=== PATIENT | female | born 1990 | race Caucasian/White ===

== ENCOUNTER 2016-12-01 22:06 | Inpatient (IN) | payer OTHER ==
[~2016-12-01] VITALS: Ht 162.6 cm; Wt 63.5 kg
[~2016-12-01 22:06] MED LIST: FLUOXETINE20 MG PO; TRAZODONE HCL50 MG PO
[2016-12-01 23:08] LABS: ABSOLUTE BASOPHIL COUNT 0.1 /CUMM (0.0-0.2); ABSOLUTE EOSINOPHIL COUNT 0.1 /CUMM (0.0-0.7); ABSOLUTE GRANULOCYTE CT 3.6 /CUMM (1.4-6.5); ABSOLUTE LYMPH COUNT 2.8 /CUMM (1.2-3.4); ABSOLUTE MONOCYTE COUNT 0.5 /CUMM (0.10-0.60); EOSINOPHIL % 1.3 % (0-5); GRANULOCYTE % 50.5 % (42.2-75.2); HEMATOCRIT 45.4 % (37-47); MEAN CORPUSCULAR HGB 30.7 PG (27.0-31.0); MEAN CORPUSCULAR HGB CONC 33.6 G/DL (33.0-37.0); MEAN CORPUSCULAR VOLUME 91.5 FL (81.0-99.0); MEAN PLATELET VOLUME 6.3 FL (7.4-10.4); PLATELET COUNT 310 /CUMM (130-400); RBC DISTRIBUTION WIDTH 15.2 % (11.5-14.5); RED BLOOD CELL CT 4.96 /CUMM (4.20-5.40)
--- NOTE | 2016-12-01 23:46 | ED GENERAL ADULT ---
History of Present Illness General Chief Complaint: Psychiatric Related Complaint Stated Complaint: DETOX FROM ETOH Source: patient, family Exam Limitations: no limitations Vital Signs & Intake/Output Vital Signs & Intake/Output Vital Signs Date Time Temp Pulse Resp B/P Pulse O2 O2 Flow FiO2 Ox Delivery Rate 12/03 0704 98.0 88 16 130/80 98 Room Air 12/03 0010 98.0 88 16 130/80 98 Room Air 12/02 2246 95.8 73 16 108/63 12/02 2246 95.8 73 16 108/63 98 Room Air 12/02 1948 96.5 91 16 135/86 12/02 1948 96.5 91 16 135/86 98 Room Air 12/02 1647 98.6 79 16 114/60 12/02 1647 98.6 79 16 114/60 99 Room Air 12/02 1407 96.8 90 18 132/65 /12 1356 96.8 90 18 132/65 98 Room Air ED Intake and Output 12/03 0000 12/02 1200 Intake Total 240 Output Total Balance 240 Intake, Oral 240 Patient 140 lb Weight Allergies Coded Allergies: NO KNOWN ALLERGIES (02/10/14) Triage Note: per pt need to detox from etoh, last drink couple hrs ago, drinking x 12 yrs. no recent drug use.. lips dry alert mentating well. admits to 1-2 pints daily Triage Nurses Notes Reviewed? yes : No Patient currently breastfeeds: No HPI: 26 yo F PMH EtOH abuse (c/b withdrawal syndromes, seizures) presenting with EtOH intoxication seeking detox. Patient has been drinking 2 pints of EtOH for the last year, recenlty moved back to [place] from [place], has been living with parents, emerita patient and parents "fed up" with EtOH abuse prompting presentation to ED for detox. Last drink 2 hrs ago. Mild anxiety and tremors. Interimttent nausea, vomiting, and epigasrtic abdominal pain, absent currently. Denies illicit drug use. PPH of anxiety, depression, denies SI, plan, intent, AH, VH. Denies falls, trauma, pain, fevers, chills, chest pain, SOB, focal neurologic Sx. (SHWETHA MAHONEY,DERRELL) Reconcile Medications No Known Home Medications (RASHID MAHONEY,MITESH Wick) Past History Travel History Traveled to [place] past 21 day No Medical History Any Pertinent Medical History? see below for history Neurological: NONE EENT: NONE Cardiovascular: NONE Respiratory: NONE Gastrointestinal: NONE Hepatic: NONE Renal: NONE Musculoskeletal: NONE Psychiatric: NONE Endocrine: NONE Surgical History Surgical History: none Psychosocial History Who do you live with Family What is your primary language [place] Tobacco Use: Current Daily Use Daily Tobacco Use Amount/Type: => 5 Cigarettes daily ETOH Use: alcoholic Illicit Drug Use: UTD Family History Hx Contributory? Yes (DERRELL TADEO MD) Review of Systems Review of Systems Constitutional: Reports: no symptoms. EENTM: Reports: no symptoms. Respiratory: Reports: no symptoms. Cardiovascular: Reports: no symptoms. GI: Reports: no symptoms, abdominal pain, nausea, vomiting. Genitourinary: Reports: no symptoms. Musculoskeletal: Reports: no symptoms. Skin: Reports: no symptoms. Neurological/Psychological: Reports: anxiety, tremors. Hematologic/Endocrine: Reports: no symptoms. Immunologic/Allergic: Reports: no symptoms. All Other Systems: Reviewed and Negative (DERRELL TADEO MD) Physical Exam Physical Exam General Appearance: well developed/nourished, no apparent distress, alert, awake , anxious Head: atraumatic, normal appearance Eyes: Bilateral: normal appearance. Ears, Nose, Throat: normal pharynx, normal ENT inspection Neck: normal inspection, supple, full range of motion Respiratory: normal breath sounds, no respiratory distress, lungs clear Cardiovascular: regular rate/rhythm, normal peripheral pulses Gastrointestinal: normal bowel sounds, soft, non-tender Extremities: normal inspection Neurologic/Psych: no motor/sensory deficits, awake, alert, oriented x 3 Comments: Abdomen: Soft and non-TTP throughout Neurologic: No tremors or tongue fasiculations Core Measures ACS in differential dx? No CVA/TIA Diagnosis: No Severe Sepsis Present: No Septic Shock Present: No (DERRELL TADEO MD) Progress Differential Diagnoses I considered the following diagnoses in my evaluation of the patient: [EtOH abuse, EtOH withdrawal] Plan of Care: Orders Procedure Date/time Status Regular Diet 12/03 B Active Change service to 12/03 0959 Active HEPT C ANTIBODY 12/03 0600 Complete CBC WITHOUT DIFFERENTIAL 12/03 0600 Complete BASIC ELECTROLYTES PLUS BUN&CR 12/03 0600 Complete Lab Add-on Test 12/03 UNK Active SOCIAL WORK CONSULT 12/03 UNK Active PSYCHIATRIC CONSULT 12/03 UNK Active Vital Signs 12/02 2346 Active Teach/Educate 12/02 2346 Active Pain Treatment and Response 12/02 234 Active Nutritional Intake, Monitor 12/02 234 Active Isolation 12/02 2346 Active Intake & Output 12/02 2346 Active Patient Care Conference 12/02 2346 Active Activity/Ambulation 12/02 2346 Active Pathway - chart 12/02 2206 Active Pathway - chart 12/02 214 Active House Staff 12/03 2139 Active Patient Data 12/03 2139 Active Lab Add-on Test 12/03 2139 Active BASIC ELECTROLYTES PLUS BUN&CR 12/03 2139 Complete Patient Data 12/02 205 Active Admit to inpatient 12/02 1831 Active Vital Signs 12/02 1831 Active Code Status 12/02 1831 Active Intake & Output 12/02 1207 Active VTE Mechanical Prophylaxis 12/02 UNK Active CIWA 12/02 UNK Complete SOCIAL WORK CONSULT 12/02 UNK Active PHOSPHORUS 12/01 2255 Complete MAGNESIUM 12/01 2255 Complete LIPASE 12/01 2255 Complete HEPT B SURFACE ANTIGEN 12/01 2255 Complete HEPT B SURFACE ANTIBODY 12/01 2255 Complete AMYLASE 12/01 2255 Complete Current Medications Sig/Jose Start time Last Medication Dose Stop Time Status Admin Omeprazole 20 MG DAILY AC 12/03 0700 CAN (Prilosec) Acetaminophen 650 MG Q6P PRN 12/02 2215 AC (Tylenol) Oxycodone HCl 5 MG Q6P PRN 12/02 2215 AC (Roxicodone) Lorazepam 1 MG Q1P PRN 12/02 2145 AC (Ativan) Sodium Chloride 1,000 ML BOLUS ONE 12/02 1245 CAN (Normal Saline 0.9%) 12/02 1344 Lorazepam 2 MG Q2P PRN 12/01 2315 AC (Ativan) Laboratory Tests 12/03/16 0645: Anion Gap 12, Estimated GFR > 60, BUN/Creatinine Ratio 18.3, CBC w Diff NO MAN DIFF REQ, RBC 4.59, MCV 92.0, MCH 30.9, RDW 14.6 H, MPV 6.9 L, Gran % 50.7, Lymphocytes % 33.5, Monocytes % 11.2 H, Eosinophils % 3.5, Basophils % 1.1, Absolute Granulocytes 2.3, Absolute Lymphocytes 1.5, Absolute Monocytes 0.5, Absolute Eosinophils 0.2, Absolute Basophils 0, PUBS MCHC 33.6, Hepatitis C Antibody NONREACTIVE 12/03/16 0030: Anion Gap 16, Estimated GFR > 60, BUN/Creatinine Ratio 20.0 Physician MDM: 26 yo F PMH extensive EtOH abuse with hx of complicated withdrawals presenting with EtOH abuse seeking detox. HR 100, SBP 130s, no tremors or tongue fasiculations on exam. Plan for labs, CIWA ativan based withdrawal scale, monitor overnight for admission vs. discharge. D/W Dr. Saleem. (SHWETHA MAHONEY,DERRELL) 5:15 PM STILL WAITING HUSKY APPROVAL. 7:20 AM Patient signed out to me by Dr. Saleem. Pending case management/crisis evaluation. 6:30 PM APPROVED FOR INPATIENT DETOX. D/W DR MONTOYA AND MOD. (NERIS MAHONEY,DAR) Initial ED EKG: none (SHWETHA MAHONEY,DERRELL) Hand-Off Endorsed To: DAR CORDON MD Endorsed Time: 0700 Pending: consult (case management/sobriety), other (sobriety) (RASHID MAHONEY,MITESH Wick) Differential Diagnoses I considered the following diagnoses in my evaluation of the patient: (DAR CORDON MD) Departure Departure Disposition: STILL A PATIENT Condition: Stable Clinical Impression Primary Impression: ETOH abuse Secondary Impressions: EtOH dependence Qualifiers: Substance use status: in withdrawal Complication of substance- induced condition: uncomplicated Qualified Code: F10.230 - Alcohol dependence with withdrawal, uncomplicated Referrals: PATIENT HAS NO PRIMARY CARE DR (PCP/Family) Departure Forms: Customer Survey General Discharge Information (DERRELL TADEO MD) Departure Prescriptions: Current Visit Scripts No Known Home Medications (RASHID MAHONEY,MITESH Wick) Departure Time of Disposition: 1831 Admission Note Spoke With: VIOLA MONTOYA MD Documentation of Exam: Documentation of any treatments & extenuating circumstances including Concerns Regarding Discharge (functional status, medication knowledge or non-compliance, living conditions, etc.) that warrant an admission rather than observation: [ ATIVAN TAPER, CIWA PROTOCOL, MONITOR I/O, CRISIS CONSULTATION, SEIZURE PRECAUTIONS] Resident Co-Sign Statement Statement: ED Attending supervision documentation- [X] I saw and evaluated the patient. I have also reviewed all the pertinent lab results and diagnostic results. I agree with the findings and the plan of care as documented in the Resident's documentation. [X] I have reviewed the ED Record and agree with the Resident's documentation. [] Additions or exceptions (if any) to the Resident's note and plan are summarized below: [] (NERIS MAHONEY,DAR) Critical Care Note Critical Care Note Critical Care Time: non-applicable (SHWETHA MAHONEY,DERRELL)
[2016-12-02 08:27] VITALS: BP 120/65
--- NOTE | 2016-12-02 09:24 | ED PSY CRISIS COLLATERAL NOTE ---
Collateral Note Collateral Note Family/Inform/Kym Contacts: telephone call with pt. father Darnell Morales. He stated that family will take "any advice the ED would give" as his daughter has had a significant drinking problem for "8-9 years". He reported that pt. had been in rehab in [place] for the last two years and that she was "kicked out of rehab for drinking". he reported she has "very sneaky behaviors" around drinking and has possibly tricked the parents and the rehab that she was sober when she was in fact not. As for psychiatric issues, father reported that pt. "seemed depressed" and showed this by having no energy/motivation and being emotional and crying easily. He stated that she has never attempted suicide. He reported that she can be combative when drinking.
[2016-12-02 12:15] VITALS: BP 137/67
[2016-12-02 14:07] VITALS: BP 132/65
[2016-12-02 16:47] VITALS: BP 114/60
[2016-12-02 19:48] VITALS: BP 135/86
--- NOTE | 2016-12-02 20:24 | History & Physical ---
FIDEL MAHONEY,BOBBY 12/02/162022: General Information and HPI Statement: I have seen and personally examined EFFIE LEONARD and documented this H&P. The patient is a 26 year old F who presented with a patient stated chief complaint of requesting Alcohol detox. Source of Information: patient, ED documents History of Present Illness: This is a 26-year-old lady with a questionable history of depression, an extensive social history of alcohol abuse since age of 10, including an episode of alcohol intoxication seizure, presents to [facility] ED for alcohol detox. Patient presented yesterday around 9 PM (12/01) with complaints of tremors, some slurred speech, confusion, nausea, and vomiting. She reports her last drink was about 2 hours prior to presentation. Patient endorses a daily consumption of 2 pints of vodka for about one year. When seen at the ED yesterday, patient was reported to be anxious and exhibited tremors. The ED records indicated that the main reason patient presented to [facility] ED was because of her parents were fed up, and were seeking help with detox. Patient reports that in 2013 she was admitted to a rehabilitation facility for detox in [place] and remained 9 months abstinent before relapsing. However, psych crisis documentation states that patient was noncompliant during rehabilitation and continued to drink. Patient denies any SI/HI, use of any other illicit drug, fever, chills, chest pain, palpitation, shortness of breath, focal neurological deficit, seizure-like activities, hallucination or nightmares. Allergies/Medications Allergies: Coded Allergies: NO KNOWN ALLERGIES (02/10/14) Home Med list No Known Home Medications Past History Travel History Traveled to [place] past 21 day No Medical History Neurological: NONE EENT: NONE Cardiovascular: NONE Respiratory: NONE Gastrointestinal: NONE Hepatic: NONE Renal: NONE Musculoskeletal: NONE Psychiatric: NONE Endocrine: NONE Surgical History Surgical History: none Past Family/Social History Psychosocial History ETOH Use: alcoholic Illicit Drug Use: UTD Review of Systems Review of Systems Constitutional: Reports: see HPI. Exam & Diagnostic Data Last 24 Hrs of Vital Signs/I&O Vital Signs Date Time Temp Pulse Resp B/P Pulse O2 O2 Flow FiO2 Ox Delivery Rate 12/026 95.8 73 16 108/63 12/02 2246 95.8 73 16 108/63 98 Room Air 12/03 1947 96.5 91 16 135/86 03/12 1948 96.5 91 16 135/86 98 Room Air 03/ 1647 98.6 79 16 114/60 03/12 1647 98.6 79 16 114/60 99 Room Air 12/02 1407 96.8 90 18 132/65 03/12 1356 96.8 90 18 132/65 98 Room Air 12/02 1215 96.6 92 16 137/67 /12 1214 96.6 92 16 137/67 98 Room Air 12/02 1047 98.1 92 20 124/70 97 Room Air 12/02 0827 98.0 96 18 120/65 /12 0804 98.0 96 18 120/65 96 Room Air 12/02 0642 98.2 93 18 121/62 97 Room Air 12/02 0432 96.1 93 18 123/63 97 Room Air Intake & Output 12/02 1600 12/02 0800 12/02 0000 Intake Total Output Total Balance Patient 65.771 kg Weight Physical Exam General Appearance Alert, Oriented X3, Cooperative Skin No Significant Lesion HEENT oral dry mucosa Neck Supple, No JVD, No thryomegaly, +2 Carotid Pulse wo Bruit Lymphatic Cervical nl Cardiovascular Regular Rate, Normal S1, Normal S2, No Murmurs, Gallops, Rubs Lungs Clear to Auscultation, Normal Air Movement Abdomen Normal Bowel Sounds, Soft, mild tenderness on left abdominal side. no guarding or rebound tenderness Neurological Normal Speech, Sensation Intact Extremities No Cyanosis, No Edema, Normal Pulses, No Tenderness/Swelling Vascular Normal Pulses, Pulses Symmetrical Assessment/Plan Assessment: This is a 26-year-old lady with a significant social history of alcohol abuse since 10 years, and I reported alcohol intoxication related seizure, presents to [facility] ED seeking alcohol detoxification. Patient was noted to be slightly tachycardic on presentation (HR 100).U tox was remarkable for alcohol level of 406.Patient's CIWA score has been ranging between 2-8 with tremors being prominent. Assessment and plan #Alcohol intoxication * Admit patient to general medicine * Lorazepam 2 mg every 6 hours * Lorazepam when necessary per CIWA protocol * Monitor for any withdrawal seizures * Zofran 4 mg every 4-6 hours for nausea and vomiting * Normal saline hydration 150 mL per hour * Banana bag * Will obtain psychosocial consult tomorrow morning #Tobacco abuse * Nicotine 14 mg done * Smoking cessation counseling done #History of depression Patient endorses depression with a possible remote diagnosis however no treatment. Will obtain psych consult for evaluation and management of depressed. As Ranked By This Provider Problem List: 1. Alcohol intoxication 2. EtOH dependence Qualifiers Substance use status: in withdrawal Complication of substance-induced condition : uncomplicated Qualified Code: F10.230 - Alcohol dependence with withdrawal, uncomplicated Core Measures/Miscellaneous Acute Coronary Syndrome ACS Diagnosis: No Cerebrovascular Accident CVA/TIA Diagnosis: No Congestive Heart Failure CHF Diagnosis: No Venous Thromboembolism VTE Risk Factors: Age > 40 [facility] d/t: No contraindications No VTE Pharm Prophylaxis d/t: No contraindications VTE Diagnosis: No VTE Type: NONE VTE Confirmed by (Test): NONE Severe Sepsis Severe Sepsis Present: No Septic Shock Septic Shock Present: No Miscellaneous Documentation Attending Case Discussed With: VIOLA MONTOYA MD Primary Care Physician: PATIENT HAS NO PRIMARY CARE DR Patient sees these Specialists none Level of Patient Care: General Medicine KOBY HELM 12/02/162: Resident Review Statement Resident Statement: examined this patient, discussed with multicultural internship, agreed with multicultural internship Other Findings: Patient is a 26-year-old woman with no significant past medical history except for for alcohol abuse with alcohol related withdrawal seizures, current every day smoker, history of depression and anxiety(never been treated for that) percent to the ED for evaluation of alcohol abuse in requesting detox. Patient has been drinking since the age of 10, drinks 2 pints of vodka on a daily basis. She was in the rehabilitation in [place] in 2013, but was discharged from the program as she started drinking again. She reported one episode of alcohol related seizure episode. Last drink was around 7 PM before coming to the hospital. In the ED patient was confused, had bilateral tremors remained nauseous and vomited couple of times. She was treated with IV Ativan and Zofran as needed for nausea in the ED. She was coarse in the last 24 hours 7, 6, 9, 11 mostly scored high on the tremors. Patient denied any shortness of breath, reported some intermittent chest discomfort without any palpitations. Still nauseous with some left upper quadrant discomfort night any diarrhea or constipation. Denied any recent infections. She continues to smoke and denies any illicit drug use. Vitals on admission temperature 98.8, pulse 100, respiratory rate 20, blood pressure 139/44 on room air On examination Appearance: Alert and oriented 3 ,not in acute distress Skin: Grossly normal. HEENT: PEERLA Neck: Supple, No JVD Cardiovascular: Regular Rate, Normal S1, Normal S2, No Murmurs Lungs: Lungs clear to auscultation bilaterally Abdomen: Slight tenderness in the left upper quadrant on exam without any guarding. Neurological: Neuro exam intact grossly Extremities: No Clubbing, No Cyanosis, No Edema. Bilateral hand tremors Vascular: Normal Pulses. Pertinent labs on admission normal WBC count H&H stable and normal platelet count, normal BEP, transaminitis: AST 164, ALT 137, with elevated anion gap 21 Pending lipase, Mg and phosphorous Urine toxicology positive for alcohol level around 406. Assessment and plan: 1. Alcohol intoxication/abuse with withdrawal, requesting detox: * We will admit the patient [facility] floor * Patient appearsdehydrated, we'll start the patient on normal saline at the rate of 150 mL per hour. * Continue with banana bag overnight start the patient on by mouth thiamine folate and multivitamins in the morning. * Start the patient on scheduled Ativan 2 mg every 6 hours * Continue Ativan as per [facility] protocol. * Zofran as needed for nausea. * Fall and seizure precautions * Social consult in the morning * Psych consult in the morning. * Watch for any withdrawal seizures. 2.Transaminitis:likely to alcohol abuse : * Repeat LFTs in am . 3. Intermitent heart burn (Alcohol related GERD /gasstritis : * Mg normal * Start PPI in am 4. History of questional depression: * Will obtain psych consult in the morning for further evaluation of anxiety depression. * Patient would benefit from treatment of depression. 5. Current every day smoker * Smoking cessation counseling done * We will start the patient on nicotine patches. Mild to moderate pain controlled with oxycodone and small dose of morphine. DVT prophylaxis with Lovenox Patient is full code VIOLA MONTOYA 12/03/16 0205: Attending MD Review Statement Attending Statement Attending MD Statement: examined this patient, discuss w/resident/PA/PRINTER ASSISTANT, agreed w/resident/PA/PRINTER ASSISTANT, reviewed EMR data (avail), reviewed images, amended to note Attending Assessment/Plan: CC: alcohol Detox PMHx: alcoholism, alcohol related Sz Patient came to ER for EtOH detox. She has been drinking 2 pints of alcohol for the last year, last drink was yesterday. She moved from [place] 2 months back and has been living with parents. Her parents suggested the detox and brought her to ER. In the past patient underwent 42 days of inpatient rehab and 9 month of outpatient rehab till Apr 2015, and relapsed again. She complains of intermittent nausea, vomiting, and epigasrtic abdominal pain, and chest pain, feeling better now. Denies illicit drug use. She denies SI or plan, homicidal ideation, visual or auditory hallucinations, LOC, falls, trauma, Sz, fevers, chills, SOB, or focal neurologic s/s Vitals: afebrile, Hr in 70s to 90s blood pressure in acceptable range. Saturating well on room air. On examination a O 3, no anxiety, no tremors, mucosa dry, neck supple, no lymphadenopathy, no JVD, skin rash on neck ( nonpruritic, absent on abdomen and back) CVS: S1-S2, RRR. RS: Clear to auscultate bilaterally. Abdomen: Soft, mild epigastric tenderness, no guarding or rigidity, ND, bowel sounds present. No focal neurological deficit. Labs: Done on 12/01/2016 shows anion gap of 21, bicarbonate 26, creatinine 0.6, BUN 10, AST 164, AST 137, total protein 8.5, beta-hCG negative, alcohol level 406, U tox negative A and P #1 alcohol withdrawal Heavy alcohol use since the age of 14, failed rehabilitation in the past, wants to go for inpatient rehabilitation again and request detox. CIWA score in ER was ranging from 11-6 - repeat CMP today, check magnesium, phosphorus, replace accordingly - Scheduled Ativan 2 mg by mouth every 6 hourly, taper from tomorrow, as needed IV Ativan according to CIWA score. - By mouth thiamine 100 mg daily, by mouth folic acid, Kylee 10 patch -Psychiatry consult #2 transaminitis: Secondary to alcoholism, repeated today and as required tomorrow, depending on today's labs. Patient has multiple tattoos done in different locations, check hepatitis B and C panel #3 epigastric pain: Probably secondary to alcohol related gastritis: Check lipase, PPI by mouth #4 encourage oral diet, IV hydration with NS and banana bag for her on an gap metabolic acidosis and metabolic alkalosis related to volume contraction, when necessary Zofran for nausea and vomiting
[2016-12-02 22:46] VITALS: BP 108/63
[2016-12-03 00:10] VITALS: BP 130/80
--- NOTE | 2016-12-03 00:49 | Admission Certification ---
Admission Certification Certification Statement - As attending physician, I certify that at the time of - admission, based on clinical presentation, severity of - symptoms, need for further diagnostic testing and - therapeutic interventions, and risk of adverse outcomes - without in-hospital treatment, in my clinical assessment, - this patient requires an acute hospital stay for a minimum - of two nights or longer. I have also considered psychsocial - factors such as support system, advanced age, financial - issues, cognitive issues, and failed out-patient treatments, - past re-admission history, safety of patient, and lack of - compliance as applicable. Specific rationale supporting this admission is: Alcohol detox and history of alcohol related seizures
[2016-12-03 07:04] VITALS: BP 130/80
--- NOTE | 2016-12-03 07:33 | PN- Housestaff ---
GEOFF MAHONEY,[facility] 12/03/16 0732: Subjective Follow-up For: Alcohol Detoxification Subjective: Miss Heard was seen and examined this morning. She is resting comfortably in bed. Patient states that she feels very tired. She states that she was unable to sleep till late last night. Patient denies any fever, chills, nausea, vomiting. She denies any auditory and/or visual hallucinations she denies any anxiety or tremors. She is tolerating a PO diet well. Review of Systems Constitutional: Reports: see HPI. Objective Last 24 Hrs of Vital Signs/I&O Vital Signs Date Time Temp Pulse Resp B/P Pulse O2 O2 Flow FiO2 Ox Delivery Rate 12/03 0704 98.0 88 16 130/80 98 Room Air 12/03 0010 98.0 88 16 130/80 98 Room Air 12/02 2246 95.8 73 16 108/63 12/02 2246 95.8 73 16 108/63 98 Room Air 12/02 1948 96.5 91 16 135/86 12/02 1948 96.5 91 16 135/86 98 Room Air 12/02 1647 98.6 79 16 114/60 12/02 1647 98.6 79 16 114/60 99 Room Air 12/02 1407 96.8 90 18 132/65 12/02 1356 96.8 90 18 132/65 98 Room Air Intake & Output 12/03 1600 12/03 0800 12/03 0000 Intake Total 1500 240 Output Total Balance 1500 240 Intake, IV 1200 Intake, Oral 300 240 Patient 63.503 kg Weight Physical Exam General Appearance: Alert, Oriented X3, Cooperative Cardiovascular: Regular Rate, Normal S1, Normal S2 Lungs: Clear to Auscultation Abdomen: Normal Bowel Sounds, Soft, No Tenderness Neurological: Normal Speech Extremities: No Cyanosis, No Edema, Normal Pulses Vascular: Normal Pulses Current Medications: Current Medications Sig/Jose Start time Last Medication Dose Route Stop Time Status Admin Acetaminophen 650 MG Q6P PRN 12/02 2215 AC PO Cyanocobalamin/ 1 BAG ONCE ONE 12/02 2230 DC Thiamine/Pyridoxine IV 12/03 0629 Dextrose/Water 1,000 ML Enoxaparin Sodium 40 MG DAILY 12/03 1000 AC 12/03 SC 1126 Folic Acid 1 MG DAILY 12/03 1000 AC 12/03 PO 1125 Influenza Virus 0.5 ML 1000 12/03 1000 DC Vaccine IM 12/03 1001 Lorazepam 1.5 MG Q6 12/03 1200 AC 12/03 PO 1126 Lorazepam 0 .STK-MED ONE 12/02 2201 DC PO Lorazepam 2 MG Q6 12/02 2145 DC 12/03 PO 0525 Lorazepam 1 MG Q1P PRN 12/02 214 AC IV Lorazepam 0 .STK-MED ONE 12/02 1448 DC PO Lorazepam 2 MG Q2P PRN 12/01 2315 AC PO Lorazepam 1 MG Q2P PRN 12/01 2315 AC 12/02 PO 1449 Morphine Sulfate 1 MG Q8P PRN 12/02 2215 DC IV Multivitamins 1 TAB DAILY 12/03 1000 AC 12/03 PO 1125 Nicotine 0 .STK-MED ONE 12/02 2201 DC TOP Nicotine 14 MG DAILY 12/02 214 AC 12/02 TOP 2237 Omeprazole 20 MG DAILY AC 12/03 0700 CAN PO Omeprazole 20 MG DAILY AC 12/03 0700 AC 12/03 PO 0528 Ondansetron HCl 4 MG .STK-MED ONE 12/03 0013 DC PO 12/03 0014 Ondansetron HCl 4 MG Q8P PRN 12/02 2145 AC 12/03 PO 0018 Oxycodone HCl 5 MG Q6P PRN 12/02 221 AC PO Sodium Chloride 1,000 ML Q6H 12/02 2145 AC 12/03 IV 0659 Thiamine HCl 100 MG DAILY 12/03 1000 AC 12/03 PO 1125 Thiamine HCl 0 .STK-MED ONE 12/02 215 DC .ROUTE Last 24 Hrs of Lab/Zachary Results Last 24 Hrs of Labs/Mics: Laboratory Tests 12/03/16 0645: Anion Gap 12, Estimated GFR > 60, BUN/Creatinine Ratio 18.3, CBC w Diff NO MAN DIFF REQ, RBC 4.59, MCV 92.0, MCH 30.9, RDW 14.6 H, MPV 6.9 L, Gran % 50.7, Lymphocytes % 33.5, Monocytes % 11.2 H, Eosinophils % 3.5, Basophils % 1.1, Absolute Granulocytes 2.3, Absolute Lymphocytes 1.5, Absolute Monocytes 0.5, Absolute Eosinophils 0.2, Absolute Basophils 0, PUBS MCHC 33.6, Hepatitis C Antibody NONREACTIVE 12/03/16 0030: Anion Gap 16, Estimated GFR > 60, BUN/Creatinine Ratio 20.0 Assessment/Plan Assessment: Ms Heard is a 26 year old female with alcohol abuse history who has been admitted for acute alcoholic withdrawal. She has has an extensive alcohol use history for over 15 years, and has recently been consuming at least 2 pints of vodka per day. #Alcohol Abuse/intoxication Patient was initially started on maintainance fluids. Continue vitamins: thiamine, folate, MVI The patient was started on scheduled Ativan 2 mg every 6 hours-->1.5 mg Q6. If stable, can consider reducing in the next 12 hours. Do not decrease ativan by more than 20% over a 24 hour period. Continue Ativan as per CIWA protocol: current ciwa: 8,1,0,0,2,3,5 Zofran as needed for nausea. Fall and seizure precautions Tylenol for symptoms of headache. #Transaminitis LFTs at the time of admission revealed: Repeat LFTs in am . #Mood Disturbance History Formal psychiartric consultation obtained. The patient might benefit from IOP once stable from a medical perspective. Gabapentin had been suggested to aid in the symptoms of anxiety. The patient did appear drowsy, but if warranted, consider Melatonin PRN. #History of Smoking Currently smokes approximately 10 cigarettes per day. Nicotine Patch 14 mg. #DVT Prophylaxis: with Lovenox #Code: Full code Problem List: 1. EtOH dependence 2. Depression 3. Alcohol intoxication 4. Alcohol abuse Pain Ratin Pain Location: No Pain reported Pain Goal: Remain pain free Pain Plan: Tylenol PRN Tomorrow's Labs & Rationales: BEP: monitor electrolytes in the setting of acute alcohol withdrawal and detoxification. ARELY MAHONEY,COLBY 12/03/16 1217: Attending MD Review Statement Attending Statement Attending MD Statement: examined this patient, discuss w/resident/PA/CPHT, agreed w/resident/PA/CPHT, reviewed EMR data (avail), discussed with nursing, discussed with case mgmt, reviewed images, amended to note Attending Assessment/Plan: Patient seen and examined, feeling overall better today. She is a 26-year-old who is admitted with acute alcohol intoxication needing detox. Vital Signs Date Time Temp Pulse Resp B/P Pulse O2 O2 Flow FiO2 Ox Delivery Rate 12/03 0704 98.0 88 16 130/80 98 Room Air 12/03 0010 98.0 88 16 130/80 98 Room Air 12/02 2246 95.8 73 16 108/63 / 2246 95.8 73 16 108/63 98 Room Air 12/02 1948 96.5 91 16 135/86 / 1948 96.5 91 16 135/86 98 Room Air 12/02 1647 98.6 79 16 114/60 / 1647 98.6 79 16 114/60 99 Room Air 12/02 1407 96.8 90 18 132/65 / 1356 96.8 90 18 132/65 98 Room Air on exam; aox3, nad. cv; s1,s2, rrr resp; clear abd; soft, nt, bs+ ext; no edema Laboratory Tests 12/03 12/03 0645 0030 Chemistry Sodium (137 - 145 mmol/L) 133 L 136 L Potassium (3.5 - 5.1 mmol/L) 3.7 3.7 Chloride (98 - 107 mmol/L) 94 L 90 L Carbon Dioxide (22 - 30 mmol/L) 27 30 Anion Gap (5 - 16) 12 16 BUN (7 - 17 mg/dL) 11 12 Creatinine (0.5 - 1.0 mg/dL) 0.6 0.6 Estimated GFR (>60 ml/min) > 60 > 60 BUN/Creatinine Ratio (7 - 25 %) 18.3 20.0 Hematology CBC w Diff NO MAN DIFF REQ WBC (4.8 - 10.8 /CUMM) 4.6 L RBC (4.20 - 5.40 /CUMM) 4.59 Hgb (12.0 - 16.0 G/DL) 14.2 Hct (37 - 47 %) 42.2 MCV (81.0 - 99.0 FL) 92.0 MCH (27.0 - 31.0 PG) 30.9 RDW (11.5 - 14.5 %) 14.6 H Plt Count (130 - 400 /CUMM) 202 MPV (7.4 - 10.4 FL) 6.9 L Gran % (42.2 - 75.2 %) 50.7 Lymphocytes % (20.5 - 51.1 %) 33.5 Monocytes % (1.7 - 9.3 %) 11.2 H Eosinophils % (0 - 5 %) 3.5 Basophils % (0.0 - 2.0 %) 1.1 Absolute Granulocytes (1.4 - 6.5 /CUMM) 2.3 Absolute Lymphocytes (1.2 - 3.4 /CUMM) 1.5 Absolute Monocytes (0.10 - 0.60 /CUMM) 0.5 Absolute Eosinophils (0.0 - 0.7 /CUMM) 0.2 Absolute Basophils (0.0 - 0.2 /CUMM) 0 PUBS MCHC (33.0 - 37.0 G/DL) 33.6 Serology Hepatitis C Antibody (NONREACTIVE) NONREACTIVE A/P; 26-year-old female with past medical history significant for alcohol abuse, depression who is admitted with acute alcohol intoxication. Continue scheduled Ativan with a taper. Will decrease it to 1.5 g every 6 hours. Continue when necessary Ativan per CIWA protocol. Continue multivitamin , folate and thiamine. Psych consult is pending. DVT px: Lovenox.
[2016-12-03 08:52] LABS: ABSOLUTE BASOPHIL COUNT 0 /CUMM (0.0-0.2); ABSOLUTE EOSINOPHIL COUNT 0.2 /CUMM (0.0-0.7); ABSOLUTE GRANULOCYTE CT 2.3 /CUMM (1.4-6.5); ABSOLUTE LYMPH COUNT 1.5 /CUMM (1.2-3.4); ABSOLUTE MONOCYTE COUNT 0.5 /CUMM (0.10-0.60); BASOPHIL % 1.1 % (0.0-2.0); EOSINOPHIL % 3.5 % (0-5); GRANULOCYTE % 50.7 % (42.2-75.2); HEMATOCRIT 42.2 % (37-47); MEAN CORPUSCULAR HGB 30.9 PG (27.0-31.0); MEAN CORPUSCULAR HGB CONC 33.6 G/DL (33.0-37.0); MEAN PLATELET VOLUME 6.9 FL (7.4-10.4); PLATELET COUNT 202 /CUMM (130-400); RBC DISTRIBUTION WIDTH 14.6 % (11.5-14.5); RED BLOOD CELL CT 4.59 /CUMM (4.20-5.40); WHITE BLOOD CELL COUNT 4.6 /CUMM (4.8-10.8)
[2016-12-03 13:55] VITALS: BP 122/70
--- NOTE | 2016-12-03 14:35 | Cons- Psychiatry ---
See Addendum MARIELA BRANHAM 12/03/16 1405: Psychiatric Consult Date of Consult: 12/03/16 Reason for Consult: depression, EtOH detox History of Present Illness: 26F with history of depression, alcohol abuse disorder is on HD#3 for EtOH detoxification. Pt has used alcohol since age 10, one unsuccessful attempt at rehab in 2013, has most recently been drinking "at least 2 pints of vodka per day". Last EtOH was at 19:00 on 12/01/16. Pt is tearful when asked if she is experiencing any sadness. She states her depression is at baseline (8/10) and her anxiety is at baseline (4/10). Physically she complains of some paroxysmal sweats, headache, and some heartburn today. She had nausea/vomiting yesterday which has resolved today with Zofran. Headache has slightly improved with Tylenol. She denies tremor, auditory disturbances, visual disturbances, tactile disturbances, agitation/irritability or confusion. CIWA score peaked at 11 yesterday, and today has been ranging from 0-5. Pt is walking to and from the bathroom with ease. She states her withdrawal symptoms are being sufficiently controlled with medication. ROS: General: (+) Sweats. GI: (+) Heartburn. (-) Nausea or vomiting (resolved since yesterday). (-) Abdominal discomfort. Neuropsych: (+) Headache, anxiety, depression. (-) Tremor, AH/VH/TH, agitation, irritability, confusion, SI/HI. Social Hx: - EtOH "at least 2 pints vodka per day." In July 2014 she attended a EtOH detox program at [facility] in [place] for 42 days, and reports being abstinent from EtOH for the subsequent 9 months while living in a penitentiary house in [place] until she got bored and began drinking again. - Denies ilicit drug use. - Current 0.5ppd smoker. - Currently living with parents, who she gets along with "sometimes when I'm not being beligerant." Allergies: Coded Allergies: NO KNOWN ALLERGIES (02/10/14) Past History Past Medical History Neurological: NONE EENT: NONE Cardiovascular: NONE Respiratory: NONE Gastrointestinal: NONE Hepatic: NONE Renal: NONE Musculoskeletal: NONE Psychiatric: NONE Endocrine: NONE Blood Disorders: NONE Cancer(s): NONE Past Surgical History Surgical History: 1 Psychosocial History Strengths/Capabilities: Able to ask for help, and articulate has some good insight. Physical Limitations (Interventions): denies Psychiatric Treatment History Diagnosis: depression and alcohol dependence Risk Factors: SA/MH hospitalized, substance abuse ARMANDO OHARA APRN 12/03/16 1442: Psychiatric Consult Date of Consult: 12/03/16 Past History Past Medical History Psychiatric: alcohol dependence, depression, R/O bipolar R/O bulemia Psychosocial History Strengths/Capabilities: Motivated for aftercare Physical Limitations (Interventions): None apparent Psychiatric Treatment History Psych Treatment Psychiatric Treatment Yes Inpatient Treatment Yes Outpatient Treatment Yes Location of Treatment [place], [place] rehab Reason for Treatment Depression, alcohol dependence, r/o bipolar, r/o bulemia Dates of Treatment 2013 Response to Treatment Improved, but relapsed in her [facility] in Jul, 2014 Risk Factors: SA/MH hospitalized, substance abuse Substance Use/Abuse History Drug Use/Abuse Substances Used/Abused Yes Substance Used/Abused Alcohol First Use 12 Last Used 12/01/16 How much used/taken 2 pints daily Substance Abuse Treatment Substance Abuse Treatment Past Substance Abuse [place] Yes Inpatient Treatment Yes Outpatient Treatment Yes Location of Treatment [facility], rehab in [place] Reason for Treatment Alcohol dependence Dates of Treatment 2013 Response to Treatment Improved until relapse in [facility] [place] in [place] Assessment/Plan Mental Status Mental Status Exam: See above. Lab Results: Laboratory Tests 12/03 12/03 0645 0030 Chemistry Sodium (137 - 145 mmol/L) 133 L 136 L Potassium (3.5 - 5.1 mmol/L) 3.7 3.7 Chloride (98 - 107 mmol/L) 94 L 90 L Carbon Dioxide (22 - 30 mmol/L) 27 30 Anion Gap (5 - 16) 12 16 BUN (7 - 17 mg/dL) 11 12 Creatinine (0.5 - 1.0 mg/dL) 0.6 0.6 Estimated GFR (>60 ml/min) > 60 > 60 BUN/Creatinine Ratio (7 - 25 %) 18.3 20.0 Hematology CBC w Diff NO MAN DIFF REQ WBC (4.8 - 10.8 /CUMM) 4.6 L RBC (4.20 - 5.40 /CUMM) 4.59 Hgb (12.0 - 16.0 G/DL) 14.2 Hct (37 - 47 %) 42.2 MCV (81.0 - 99.0 FL) 92.0 MCH (27.0 - 31.0 PG) 30.9 RDW (11.5 - 14.5 %) 14.6 H Plt Count (130 - 400 /CUMM) 202 MPV (7.4 - 10.4 FL) 6.9 L Gran % (42.2 - 75.2 %) 50.7 Lymphocytes % (20.5 - 51.1 %) 33.5 Monocytes % (1.7 - 9.3 %) 11.2 H Eosinophils % (0 - 5 %) 3.5 Basophils % (0.0 - 2.0 %) 1.1 Absolute Granulocytes (1.4 - 6.5 /CUMM) 2.3 Absolute Lymphocytes (1.2 - 3.4 /CUMM) 1.5 Absolute Monocytes (0.10 - 0.60 /CUMM) 0.5 Absolute Eosinophils (0.0 - 0.7 /CUMM) 0.2 Absolute Basophils (0.0 - 0.2 /CUMM) 0 PUBS MCHC (33.0 - 37.0 G/DL) 33.6 Serology Hepatitis C Antibody (NONREACTIVE) NONREACTIVE 12/01/16: HBSAb positive, HCG negative, AST 164/ALT 137, serum ETOH 406, utox negative Diffential Diagnosis: Alcohol use d/o, severe, recurrent Depressive d/o NOS R/O bipolar d/o R/o bulemia Impression: The patient has been treated in the past at [facility] and [facility] with Prozac, Abilify, gabapentin and trazodone in the past. Prozac and Abilify can wait until the patient comes to [facility], as she has not been followed by outpatient psychiatry since leaving the [facility], [place], operated by [facility] in [place] in August,. [facility] 12/03/16 1139: 3-9-8-9-7-7-2-3-7-6-9-11-2 VS 0704: 130/80, 88, 98.0 Oral, 16RR 98% RA As of 1340, Lorazepam 5.5 mg scheduled and 1 mg PRN, for a total of 6.5 mg total. Reduce this total by no more than 20% daily (1.5 mg), due to the history of seizure. Provisional Treatment Plan: 1. Continue ETOH Detox protocol. 2. Daily folate, thiamine, MVI. 3. The patient has agreed to come to [facility] after her alcohol detox is complete. We will arrange that intake appointment when her discharge date is known. 4. Consider starting gabapentin 100 mg PO 3X/day for anxiety, and off-label use. 5. If insomnia, consider melatonin 3 mg PO at bedtime. We will continue to follow along with you. Armando Ohara APRN, Pager [phone]
--- NOTE | 2016-12-03 18:43 | Patient Discharge Instructions ---
Discharge Instructions General Discharge Information Watch for these problems: Fever, nausea, vomiting, chills, weakness, increased generalized edema. Palpitations. Chest pain. Shortness of breath. If you have any adverse reactions from any of the medications prescribed please inform your primary care physician and you may be required to come back to the emergency department. Thank you for allowing us to be part of your care. Special Instructions: Please follow up with your PCP in one week. Please inform your PCP about the medication changes we have made and started. You have an appointment at [facility] on Saturday morning at 10 AM, please follow with them on time Follow up with [facility] [place] within 2 weeks. Diet Continue normal diet: Yes Activity Full Activity/No Limits: Yes Acute Coronary Syndrome Inclusion Criteria At DC or during hospital stay patient has or had the following: ACS DIAGNOSIS No Discharge Core Measures Meds if any: Prescribed or Continued at Discharge Meds if any: NOT Prescribed or Continued at Discharge Congestive Heart Failure Inclusion Criteria At DC or during hospital stay patient has or had the following: CHF DIAGNOSIS No Discharge Core Measures Meds if any: Prescribed or Continued at Discharge Meds if any: NOT Prescribed or Continued at Discharge Cerebrovascular accident Inclusion Criteria At DC or during hospital stay patient has or had the following: CVA/TIA Diagnosis No Discharge Core Measures Meds if any: Prescribed or Continued at Discharge Meds if any: NOT Prescribed or Continued at Discharge Venous thromboembolism Inclusion Criteria VTE Diagnosis No VTE Type NONE VTE Confirmed by (Test) NONE Discharge Core Measures - Per Current guidelines, there needs to be overlap - treatment for the first 5 days of Warfarin therapy. - If discharged on Warfarin prior to 5 days of - overlap therapy, the patient will need to be - assessed for post discharge needs including - *Post discharge parental anticoagulation - *Warfarin and/or parental anticoagulation education - *Follow up date to check INR post discharge At least 5 days overlap therapy as Inpatient No Meds if any: Prescribed or Continued at Discharge Note: Overlap Therapy is Warfarin and Anticoagulant Meds if any: NOT Prescribed or Continued at Discharge
--- NOTE | 2016-12-03 19:05 | Transfer of Care Summary ---
Hospital Course Course Hospital Course: Ms Heard is a 26 year old female with alcohol abuse history who has been admitted for acute alcoholic withdrawal. She has has an extensive alcohol use history for over 15 years, and has recently been consuming at least 2 pints of vodka per day. #Alcohol Abuse/intoxication Patient was initially started on maintainance fluids. Continue vitamins: thiamine, folate, MVI The patient was started on scheduled Ativan 2 mg every 6 hours-->1.5 mg Q6. If stable, can consider reducing in the next 12 hours. Do not decrease ativan by more than 20% over a 24 hour period. Continue Ativan as per CIWA protocol: current ciwa: 8,1,0,0,2,3,5 Zofran as needed for nausea. Fall and seizure precautions Tylenol for symptoms of headache. #Transaminitis LFTs at the time of admission revealed: Repeat LFTs in am . #Mood Disturbance History Formal psychiartric consultation obtained. The patient might benefit from IOP once stable from a medical perspective. Gabapentin had been suggested to aid in the symptoms of anxiety. The patient did appear drowsy, but if warranted, consider Melatonin PRN. #History of Smoking Currently smokes approximately 10 cigarettes per day. Nicotine Patch 14 mg. #DVT Prophylaxis: with Lovenox #Code: Full code Pertinent Lab Results: Serum Alcohol Level 406 AST: 164 ALT: 137 Assessment/Plan: Ms Heard is a 26 year old female with alcohol abuse history who has been admitted for acute alcoholic withdrawal. She has has an extensive alcohol use history for over 15 years, and has recently been consuming at least 2 pints of vodka per day. Continue the patient on CIWA, she will likely need IOP once she is medically cleared.
[2016-12-03 23:31] VITALS: BP 110/70
[2016-12-04 02:11] VITALS: BP 110/70
--- NOTE | 2016-12-04 07:22 | PN- Housestaff ---
VIRY [facility]ONE[facility] 0722: Subjective Follow-up For: Alcohol detox Subjective: Afebrile, no acute overnight events reported, patient looks relaxed and comfortable. She is not anxious, agitated, and denies any tremor or hallucination. Review of Systems Constitutional: Denies: chills, fever, weakness. Cardiovascular: Reports: no symptoms. Respiratory: Reports: no symptoms. Gastrointestinal: Reports: no symptoms. Genitourinary: Reports: no symptoms. Objective Last 24 Hrs of Vital Signs/I&O Vital Signs Date Time Temp Pulse Resp B/P Pulse O2 O2 Flow FiO2 Ox Delivery Rate 12/04 0801 98.7 60 20 110/60 96 Room Air 12/04 0724 98.7 80 18 106/80 96 Room Air 12/04 0211 98.9 87 20 110/70 96 Room Air 12/03 2331 99.1 89 20 110/70 97 12/03 1355 98.1 82 18 122/70 97 Room Air Intake & Output 12/04 1600 12/04 0800 12/04 0000 Intake Total 1300 700 Output Total Balance 1300 700 Intake, IV 1200 600 Intake, Oral 100 100 Physical Exam General Appearance: Alert, Oriented X3, Cooperative, No Acute Distress Skin: No Rashes HEENT: Atraumatic, PERRLA, EOMI, Mucous Membr. moist/pink Cardiovascular: Regular Rate, Normal S1, Normal S2, No Murmurs Lungs: Clear to Auscultation, Normal Air Movement Abdomen: Soft, No Tenderness Neurological: Normal Speech Extremities: No Clubbing, No Cyanosis, No Edema Current Medications: Current Medications Sig/Jose Start time Last Medication Dose Route Stop Time Status Admin Acetaminophen 650 MG Q6P PRN 12/02 2215 AC PO Enoxaparin Sodium 40 MG DAILY 12/03 1000 AC 12/03 SC 1126 Folic Acid 1 MG DAILY 12/03 1000 AC 12/03 PO 1125 Gabapentin 100 MG Q8P PRN 12/03 1915 AC PO Influenza Virus 0.5 ML 1000 12/03 1000 DC Vaccine IM 12/03 1001 Lorazepam 1.5 MG Q6 12/03 1200 AC 12/04 PO 0559 Lorazepam 2 MG Q6 12/02 2145 DC 12/03 PO 0525 Lorazepam 1 MG Q1P PRN 12/02 2145 AC IV Lorazepam 2 MG Q2P PRN 12/01 2315 AC PO Lorazepam 1 MG Q2P PRN 12/01 2315 AC 12/02 PO 1449 Morphine Sulfate 1 MG Q8P PRN 12/02 2215 DC IV Multivitamins 1 TAB DAILY 12/03 1000 AC 12/03 PO 1125 Nicotine 14 MG DAILY 12/02 2145 AC 12/02 TOP 2237 Omeprazole 20 MG DAILY AC 12/03 0700 AC 12/04 PO 0600 Ondansetron HCl 4 MG Q8P PRN 12/02 2145 AC 12/03 PO 0018 Oxycodone HCl 5 MG Q6P PRN 12/02 2215 AC PO Patient Medication 1 ED .STK-MED ONE 12/03 1413 DC Teaching ED 12/03 1414 Sodium Chloride 1,000 ML Q6H 12/02 214 AC 12/04 IV 0438 Thiamine HCl 100 MG DAILY 12/03 1000 AC 12/03 PO 1125 Last 24 Hrs of Lab/Zachary Results Last 24 Hrs of Labs/Mics: Laboratory Tests 12/04/16 0700: Anion Gap 2 L, Estimated GFR > 60, BUN/Creatinine Ratio 18.3 Assessment/Plan Assessment: Ms Heard is a 26 year old female with alcohol abuse history who has been admitted for acute alcoholic withdrawal. She has has an extensive alcohol use history for over 15 years, and has recently been consuming at least 2 pints of vodka per day. #Alcohol Abuse/intoxication Pt has history of seizure in summer of 2015 while attempting to detox herself from EtOH. this time she is tolerating well, she scores 0 on CIWA score since yesterday 14:00 * We will Continue vitamins: thiamine, folate, MVI * W'll Continue Ativan 1.5 mg Q6 for now and continue Ativan taper as per CIWA protocol. * Zofran as needed for nausea. * Fall and seizure precautions * Tylenol for headache. #Transaminitis On admission December 01, she had transaminitis with AST > ALT, this is most likely secondary to alcohol. Hepatitis C and hepatitis B were negative. * We'll repeat liver function today #Mood Disturbance History Patient has history of depression, anxiety, and mild insomnia. psych is on board. * We will Continue gabapentin for anxiety as per psych (off label) * We will continue Melatonin 3 mg PRN. #History of Smoking * Nicotine Patch 14 mg. Regular diet DVT Ppx Lovenox Full code Problem List: 1. EtOH dependence 2. Depression Pain Ratin Pain Location: na Pain Goal: Remain pain free Pain Plan: see A&P Tomorrow's Labs & Rationales: see A&P BERENICE MAHONEY,RYNE 12/04/16 1011: Attending MD Review Statement Attending Statement Attending MD Statement: examined this patient, discuss w/resident/PA/SUPERVISOR [employer], agreed w/resident/PA/SUPERVISOR CARPENTERS, reviewed EMR data (avail), discussed with nursing, reviewed images, amended to note Attending Assessment/Plan: Patient seen and examined. Resting comfortably and not in any acute distress. No issues overnight reported by nursing staff. CIWA score has been improving. On examination she is calm. She is not agitated and tremulous. She is hemodynamically stable. I agree with continued taper of her benzodiazepine regimen. Psychiatry consultation appreciated. She should follow-up with the IOP program upon discharge.
[2016-12-04 07:24] VITALS: BP 106/80
[2016-12-04 08:01] VITALS: BP 110/60
[2016-12-04 13:47] VITALS: BP 122/84
[2016-12-04 20:00] VITALS: BP 122/84
[2016-12-04 21:32] VITALS: BP 130/70
[2016-12-05] VITALS: BP 130/70
[2016-12-05 04:00] VITALS: BP 130/70
[2016-12-05 06:37] VITALS: BP 126/74
--- NOTE | 2016-12-05 08:25 | PN- Housestaff ---
VIRY MAHNOEY,[facility] 12/05/16 0825: Subjective Follow-up For: Alcohol detox Subjective: Patient is afebrile and stable, no acute overnight events reported, she is laying on bed looks relaxed and comfortable. She denies headache, nausea, hallucination, tremor, or feeling anxious. Review of Systems Constitutional: Reports: no symptoms. Objective Last 24 Hrs of Vital Signs/I&O Vital Signs Date Time Temp Pulse Resp B/P Pulse O2 O2 Flow FiO2 Ox Delivery Rate 12/05 1407 99.5 97 20 128/80 97 Room Air 12/05 0637 98.7 60 18 126/74 99 Room Air 12/05 0400 98.4 78 18 130/70 12/05 0000 98.4 78 18 130/70 12/04 2132 98.4 78 18 130/70 95 Room Air 12/04 2000 98.1 98 20 122/84 Intake & Output 12/05 1600 12/05 0800 12/05 0000 Intake Total 1240 1560 800 Output Total Balance 1240 1560 800 Intake, IV 600 1200 Intake, Oral 640 360 800 Physical Exam General Appearance: Alert, Oriented X3, Cooperative, No Acute Distress Skin: No Rashes HEENT: Atraumatic, PERRLA, EOMI, Mucous Membr. moist/pink Cardiovascular: Regular Rate, Normal S1, Normal S2, No Murmurs Lungs: Clear to Auscultation, Normal Air Movement Abdomen: Soft, No Tenderness Neurological: Normal Speech Extremities: No Clubbing, No Cyanosis, No Edema Current Medications: Current Medications Sig/Jose Start time Last Medication Dose Route Stop Time Status Admin Acetaminophen 650 MG Q6P PRN 12/02 2215 AC PO Docusate Sodium 100 MG DAILY 12/04 1153 AC 12/05 PO 0929 Enoxaparin Sodium 40 MG DAILY 12/03 1000 AC 12/05 SC 0930 Folic Acid 1 MG DAILY 12/03 1000 AC 12/05 PO 0929 Gabapentin 100 MG Q8P PRN 12/03 1915 AC PO Lorazepam 0.5 MG Q6 12/05 1200 AC 12/05 PO 12/11 1159 1249 Lorazepam 1 MG Q6 12/04 1200 DC 12/05 PO 0530 Lorazepam 1 MG Q1P PRN 12/02 2145 AC IV Lorazepam 2 MG Q2P PRN 12/01 2315 AC PO Lorazepam 1 MG Q2P PRN 12/01 2315 AC 12/02 PO 1449 Multivitamins 1 TAB DAILY 12/03 1000 AC 12/05 PO 0929 Nicotine 14 MG DAILY 12/02 2145 AC 12/05 TOP 0931 Omeprazole 20 MG DAILY AC 12/03 0700 AC 12/05 PO 0529 Ondansetron HCl 4 MG Q8P PRN 12/02 2145 AC 12/03 PO 0018 Oxycodone HCl 5 MG Q6P PRN 12/02 2215 AC PO Sodium Chloride 1,000 ML Q6H 12/02 2145 DC 12/05 IV 0530 Thiamine HCl 100 MG DAILY 12/03 1000 AC 12/05 PO 0929 Last 24 Hrs of Lab/Zachary Results Last 24 Hrs of Labs/Mics: Laboratory Tests 12/05/16 0610: Anion Gap 8, Estimated GFR > 60, BUN/Creatinine Ratio 16.7 Assessment/Plan Assessment: Ms Heard is a 26 year old female with alcohol abuse history who has been admitted for acute alcoholic withdrawal. She has has an extensive alcohol use history for over 15 years, and has recently been consuming at least 2 pints of vodka per day. #Alcohol Abuse/intoxication Pt has history of seizure in summer of 2015 while attempting to detox herself from EtOH. this time she is tolerating well, she scores 0 on CIWA score since yesterday * We will Continue vitamins: thiamine, folate, MVI * Ativan was decreased to 0.5 mg every 6 * Zofran as needed for nausea. * Fall and seizure precautions * After tapering the Ativan agent will be discharged and plan to do outpatient rehabilitation for alcohol #Transaminitis On admission December 01, she had transaminitis with AST > ALT, this is most likely secondary to alcohol. Hepatitis C and hepatitis B were negative. * Her liver enzyme improved since admission, we may repeat one more time before discharge #Mood Disturbance History Patient has history of depression, anxiety, and mild insomnia. psych is on board. * We will Continue gabapentin for anxiety as per psych (off label) * We will continue Melatonin 3 mg PRN. #History of Smoking * Nicotine Patch 14 mg. Regular diet DVT Ppx Lovenox Full code Problem List: 1. Alcohol abuse 2. EtOH dependence 3. Depression 4. Alcohol intoxication Pain Ratin Pain Location: na Pain Goal: Remain pain free Pain Plan: see A&P Tomorrow's Labs & Rationales: see A&P ARELY MAHONEY,COLBY 12/05/16 1229: Attending MD Review Statement Attending Statement Attending MD Statement: examined this patient, discuss w/resident/PA/STORE STOCK ASSOCIATE, agreed w/resident/PA/STORE STOCK ASSOCIATE, reviewed EMR data (avail), discussed with nursing, discussed with case mgmt, amended to note Attending Assessment/Plan: Patient seen and examined, feeling overall better. Her CIWA scores are running in the low range. At this point IV fluids will be discontinued. Patient was encouraged to ambulate. We will go down further on her Ativan.. Continue CIWA protocol and began and Ativan. If patient continues to do well, likely can be discharged in the next 1-2 days. She will need an outpatient rehabilitation for etoh.
[2016-12-05 14:07] VITALS: BP 128/80
[2016-12-05 22:53] VITALS: BP 108/70
[2016-12-06 06:40] VITALS: BP 132/68
--- NOTE | 2016-12-06 07:40 | PN- Housestaff ---
See Addendum Subjective Follow-up For: Alcohol detox Subjective: Stable, no acute overnight events reported, looks relaxed and comfortable. She denies tremor, nausea, hallucination, anxiety or headache. She is scoring 0-4 on CIWA during the past 2 days with most of her scores pain 0. Patient would like to be discharged today. Review of Systems Constitutional: Reports: no symptoms. Denies: see HPI. Objective Last 24 Hrs of Vital Signs/I&O Vital Signs Date Time Temp Pulse Resp B/P Pulse O2 O2 Flow FiO2 Ox Delivery Rate 12/06 0640 99.2 77 18 132/68 100 Room Air 12/05 2253 98.9 91 20 108/70 98 12/05 1407 99.5 97 20 128/80 97 Room Air Intake & Output 12/06 1600 12/06 0800 12/06 0000 Intake Total 120 480 Output Total Balance 120 480 Intake, Oral 120 480 Physical Exam General Appearance: Alert, Oriented X3, Cooperative, No Acute Distress Skin: No Rashes HEENT: Atraumatic, PERRLA, EOMI, Mucous Membr. moist/pink Cardiovascular: Regular Rate, Normal S1, Normal S2, No Murmurs Lungs: Clear to Auscultation, Normal Air Movement Abdomen: Soft, No Tenderness Neurological: Normal Speech Extremities: No Clubbing, No Cyanosis, No Edema Current Medications: Current Medications Sig/Jose Start time Last Medication Dose Route Stop Time Status Admin Acetaminophen 650 MG Q6P PRN 12/02 2215 AC PO Docusate Sodium 100 MG DAILY 12/04 1153 AC 12/05 PO 0929 Enoxaparin Sodium 40 MG DAILY 12/03 1000 AC 12/05 SC 0930 Folic Acid 1 MG DAILY 12/03 1000 AC 12/05 PO 0929 Gabapentin 100 MG Q8P PRN 12/03 1915 AC PO Lorazepam 0.5 MG Q6 12/05 1200 AC 12/06 PO 12/11 1159 0524 Lorazepam 1 MG Q6 12/04 1200 DC 12/05 PO 0530 Lorazepam 1 MG Q1P PRN 12/02 2145 AC IV Lorazepam 2 MG Q2P PRN 12/01 2315 AC PO Lorazepam 1 MG Q2P PRN 12/01 2315 AC 12/02 PO 1449 Multivitamins 1 TAB DAILY 12/03 1000 AC 12/05 PO 0929 Nicotine 14 MG DAILY 12/02 2145 AC 12/05 TOP 0931 Omeprazole 20 MG DAILY AC 12/03 0700 AC 12/06 PO 0524 Ondansetron HCl 4 MG Q8P PRN 12/02 2145 AC 12/03 PO 0018 Oxycodone HCl 5 MG Q6P PRN 12/02 2215 AC PO Patient Medication 1 ED .STK-MED ONE 12/05 1336 UT Teaching ED 12/05 1337 Polyethylene Glycol 17 GM DAILY 12/05 1827 AC 12/05 PO 1922 Senna 187 MG AT BEDTIME PRN 12/05 1830 AC 12/05 PO 2159 Sodium Chloride 1,000 ML Q6H 12/02 214 DC 12/05 IV 0530 Thiamine HCl 100 MG DAILY 12/03 1000 AC 12/05 PO 0929 Last 24 Hrs of Lab/Zachary Results Last 24 Hrs of Labs/Mics: Laboratory Tests 12/06/16 0800: Sodium Pending, Potassium Pending, Chloride Pending, Carbon Dioxide Pending, Anion Gap Pending, BUN Pending, Creatinine Pending, BUN/Creatinine Ratio Pending Assessment/Plan Assessment: Ms Heard is a 26 year old female with alcohol abuse history who has been admitted for acute alcoholic withdrawal. She has has an extensive alcohol use history for over 15 years, and has recently been consuming at least 2 pints of vodka per day. #Alcohol Abuse/intoxication Pt has history of seizure in summer of 2015 while attempting to detox herself from EtOH. this time she is tolerating well, she scores 0-4 on CIWA score for the past 2 days * We will Continue vitamins: thiamine, folate, MVI * Ativan was decreased to 0.5 mg every 12 * Zofran as needed for nausea. * Fall and seizure precautions * After tapering the Ativan agent will be discharged and plan to do outpatient rehabilitation for alcohol #Transaminitis On admission December 01, she had transaminitis with AST > ALT, this is most likely secondary to alcohol. Hepatitis C and hepatitis B were negative. Her liver enzyme improved since admission. * Patient will be advised to follow up with her primary care doctor within 2 weeks #Mood Disturbance History Patient has history of depression, anxiety, and mild insomnia. psych is on board. * We will Continue gabapentin for anxiety as per psych (off label) * We will continue Melatonin 3 mg PRN. #History of Smoking * Nicotine Patch 14 mg. Regular diet DVT Ppx Lovenox Full code Problem List: 1. EtOH dependence 2. Alcohol abuse Pain Ratin Pain Location: NA Pain Goal: Remain pain free Pain Plan: See assessment and plan Tomorrow's Labs & Rationales: See assessment and plan
[2016-12-06] MEDS ORDERED: GABAPENTIN100 M2 PO (11:49)
[2016-12-06] MEDS ORDERED: VITAMIN B-1100 MG PO (11:50)
[2016-12-06] MEDS ORDERED: ATIVAN0.5 M1 PO (11:50)
[2016-12-06] MEDS ORDERED: FOLIC ACID1 M1 PO (11:50)
[2016-12-06] MEDS ORDERED: ONE DAILY MULT1 EAC2 PO (11:50)
[2016-12-06 14:53] VITALS: BP 110/80
--- NOTE | 2016-12-07 11:04 | Discharge Summary ---
Visit Information Visit Dates Admission Date: 12/02/16 Discharge Date: 12/06/16 Hospital Course Course Attending Physician: COLBY MCGEE MD Primary Care Physician: PATIENT HAS NO PRIMARY CARE DR Hospital Course: Ms Heard is a 26 year old female with long history of alcohol abuse, who presented for EtOH detox. Patient has history of seizure in summer of 2015 while attempting to detox herself from EtOH. 1.EtOH detox Pt was treated with Lorazepam as per [facility] protocol. She recieved Zofran 4 mg every 4-6 hours for nausea and vomiting. She was given thiamine, folate, and MVI. Patient tolerated the detox well, she did not complain of seizure, hallucination, hypertension, or tremor. 2.Transaminitis On admission was found to has transaminitis with AST > ALT, this is most likely secondary to alcohol. Hepatitis C and hepatitis B were negative. AST and ALT was trended down. She was advised to follow up with her primary care doctor within 2 weeks 3.#Anxiety Was managed with gabapentin for anxiety as per psych (off label). The patient has agreed to come to [facility] after her alcohol detox is complete. She was insturcted to follow up with them. Allergies: Coded Allergies: NO KNOWN ALLERGIES (02/10/14) Disposition Summary Disposition Principal Diagnosis: Alcohol detox Additional Diagnosis: Anxiety Discharge Disposition: home or self care Discharge Instructions General Discharge Information Code Status: Full Code Patient's Diet: Regular Patient's Activity: As tolerated Follow-Up Instructions/Appts: please follow up with pcp 2.please follow up with [facility] post discharge Medications at Discharge Discharge Medications: Start taking the following new medications: Gabapentin (Gabapentin) 100 MG CAPSULE 100 Milligram ORAL EVERY 8 HOURS NEEDED as needed for ANXIETY Days = 7 No Refills Instructions: please take this medication every 8 hours if you feel anxious. Comments: NOT GIVEN Lorazepam (Ativan) 0.5 MG TABLET 0.5 Milligram ORAL EVERY 12 HOURS Qty = 2 No Refills Instructions: please take this medication at 10 PM tonight and the next and final dose will be 10 AM tomorrow Comments: Last Taken:12/06/16 Time:12:30 PM Folic Acid (Folic Acid) 1 MG TABLET 1 Milligram ORAL DAILY Days = 30 No Refills Comments: Last Taken:12/06/16 Time:9 AM Thiamine HCl (Vitamin B-1) 100 MG TABLET 100 Milligram ORAL DAILY Days = 30 No Refills Comments: Last Taken:12/06/16 Time:9 AM Multivitamin (One Daily Multivitamin) 1 EACH TABLET 1 Tablet ORAL DAILY Days = 30 No Refills Comments: Last Taken:12/06/16 Time:9 AM Copies To: JAYLEN MIR APRN
== END 2016-12-06 16:55 | disposition home health service (06) | DRG 775 ==
LOC: ENRESERVTM → ENRESERVDT → ERH 22:06 → 2NA 12-02 18:31 → ENPENDDIS 12-02 18:31 → ERHI 12-02 18:31 → 2NA 12-02 23:31
PROVIDERS: Pediatrics; Student in an Organized Health Care Education/Training Program; ADMIT Internal Medicine
PROC: HZ2ZZZZ Detoxification Services for Substance Abuse Treatment (ICD-10-PCS; principal; 2016-12-02)
DX: F10.129 Alcohol abuse with intoxication, unspecified (principal); Y90.8 Blood alcohol level of 240 mg/100 ml or more; R74.0 Nonspecific elevation of levels of transaminase and lactic acid dehydrogenase [LDH]; F39 Unspecified mood [affective] disorder; F17.200 Nicotine dependence, unspecified, uncomplicated; F32.9 Major depressive disorder, single episode, unspecified; K21.9 Gastro-esophageal reflux disease without esophagitis
CPT/HCPCS: 2NASP; 36415; 80307; 82436; 86803; 99232; G0480; J1650; J3101; J3490; J7060; Q2036

== ENCOUNTER 2016-12-26 21:42 | Emergency (ER) | payer OTHER ==
[~2016-12-26] VITALS: Ht 162.6 cm; Wt 63.5 kg
[~2016-12-26 21:42] MED LIST changes: +ATIVAN0.5 M1 PO; +FOLIC ACID1 M1 PO; +GABAPENTIN100 M2 PO; +ONE DAILY MULT1 EAC2 PO; +VITAMIN B-1100 MG PO
[2016-12-26 22:48] LABS: ABSOLUTE BASOPHIL COUNT 0.1 /CUMM (0.0-0.2); ABSOLUTE EOSINOPHIL COUNT 0.3 /CUMM (0.0-0.7); ABSOLUTE GRANULOCYTE CT 3.9 /CUMM (1.4-6.5); ABSOLUTE MONOCYTE COUNT 0.7 /CUMM (0.10-0.60); BASOPHIL % 0.8 % (0.0-2.0); EOSINOPHIL % 3.2 % (0-5); GRANULOCYTE % 49.3 % (42.2-75.2); HEMATOCRIT 40.3 % (37-47); MEAN CORPUSCULAR HGB 30.9 PG (27.0-31.0); MEAN CORPUSCULAR HGB CONC 33.2 G/DL (33.0-37.0); MEAN CORPUSCULAR VOLUME 93.1 FL (81.0-99.0); MEAN PLATELET VOLUME 6.7 FL (7.4-10.4); PLATELET COUNT 275 /CUMM (130-400); RBC DISTRIBUTION WIDTH 13.6 % (11.5-14.5); RED BLOOD CELL CT 4.34 /CUMM (4.20-5.40)
--- NOTE | 2016-12-26 23:19 | ED PSYCHIATRIC COMPLAINT ---
History of Present Illness General Chief Complaint: ETOH/Drug Related Complaint Stated Complaint: PT IS HERE FOR DETOX FROM ALOCHOL Source: patient Exam Limitations: no limitations Vital Signs & Intake/Output Vital Signs & Intake/Output Vital Signs Date Time Temp Pulse Resp B/P Pulse O2 O2 Flow FiO2 Ox Delivery Rate 12/27 1804 98.2 84 16 117/71 04/06 1745 98.2 84 16 117/71 /06 1537 98.5 76 16 128/65 04/06 1536 98.2 76 16 128/65 04/06 1248 94.8 80 16 120/66 04/06 1246 94.8 80 16 120/66 04/06 0930 96.0 95 16 107/55 04/06 0930 96.0 95 16 107/55 97 Room Air Allergies Coded Allergies: NO KNOWN ALLERGIES (02/10/14) Reconcile Medications Folic Acid 1 MG TABLET 1 MG PO DAILY nutritional supplements Gabapentin 100 MG CAPSULE 100 MG PO Q8P PRN ANXIETY please take this medication every 8 hours if you feel anxious. Lorazepam (Ativan) 0.5 MG TABLET 0.5 MG PO Q12 alcohol detox please take this medication at 10 PM tonight and the next and final dose will be 10 AM tomorrow Multivitamin (One Daily Multivitamin) 1 EACH TABLET 1 TAB PO DAILY nutritional supplements Thiamine HCl (Vitamin B-1) 100 MG TABLET 100 MG PO DAILY nutritional supplements Triage Note: RECEIVED 26 YO FEMALE REQUESTING DETOX FROM ALCOHOL. 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 PT DRINKS APPROX 1 TO 1 1/2 PINTS A DAY. PT REPORTED SHE HAD A WITHDRAWL SEIZURE ABOUT 6 MONTHS AGO. Triage Nurses Notes Reviewed? yes : No Patient currently breastfeeds: No HPI: Patient presents for evaluation of alcohol intoxication, dependence and need for detoxification. Patient states she drinks 1/2-2 pints of vodka daily and has been doing so over the past 12 years. She states her last detox was at [facility] roughly 1 month ago. Last use of alcohol was about 60 minutes prior to arrival. She denies associated drug use but does smoke about 2 packs of cigarettes per week. She has no specific complaint currently other than alcohol dependence. She states she did have one seizure about 6 months ago but denies that it was relative to alcohol withdrawal. The cause of that particular seizure is unknown. Her past medical history she denies past history but states that as the result of her prior detoxification admission she was placed on 2 unknown medications that she simply takes. (RENE ALEXANDRA MD) Past History Travel History Traveled to [place] past 21 day No Medical History Any Pertinent Medical History? see below for history Neurological: NONE EENT: NONE Cardiovascular: NONE Respiratory: NONE Gastrointestinal: NONE Hepatic: NONE Renal: NONE Musculoskeletal: NONE Psychiatric: alcohol dependence, depression, R/O bipolar R/O bulemia Endocrine: NONE Blood Disorders: NONE Cancer(s): NONE History of MRSA: No History of VRE: No History of CDIFF: No Surgical History Surgical History: none Psychosocial History Who do you live with Family What is your primary language Azeri Tobacco Use: Current Daily Use Daily Tobacco Use Amount/Type: => 5 Cigarettes daily ETOH Use: alcoholic Family History Hx Contributory? No (RENE ALEXANDRA MD) Review of Systems Review of Systems Constitutional: Reports: no symptoms. EENTM: Reports: no symptoms. Respiratory: Reports: no symptoms. Cardiovascular: Reports: no symptoms. GI: Reports: no symptoms. Genitourinary: Reports: no symptoms. Musculoskeletal: Reports: no symptoms. Skin: Reports: no symptoms. Neurological/Psychological: Reports: no symptoms. Hematologic/Endocrine: Reports: no symptoms. Immunologic/Allergic: Reports: no symptoms. All Other Systems: Reviewed and Negative (RENE ALEXANDRA MD) Physical Exam Physical Exam General Appearance: SEE BELOW Neurological/Psychiatric: SEE BELOW Comments: Gen.: Well-nourished, well-developed, no acute respiratory distress. EtOH like odor with mildly slurred speech. Head: Normocephalic, atraumatic. Eyes: Normal inspection bilaterally Ears: Normal inspection bilaterally Nose: Normal inspection Throat/mouth : Moist mucosa Neck: Supple, full range of motion, no goiter Heart: Regular rate and rhythm, no murmurs rubs or gallops Lungs: Clear to auscultation bilaterally with normal air entry Chest: Nontender Back: Normal range of motion Abdomen: Soft, nontender, nondistended, normal bowel sounds Extremities: Normal range of motion grossly, equal radial pulses, no cyanosis clubbing or edema Neurologic: Cranial nerves grossly intact, speech is clear Skin: warm and dry Psychiatric: Calm, reluctantly cooperative, no apparent delusions or hallucinations, sarcastic in timeS SAD PERSONS Done? patient not suicidal (RENE ALEXANDRA MD) Progress Differential Diagnosis: drug intoxication Plan of Care: Laboratory Tests 12/27/16 1230: Urine Opiates Screen < 100.00, Methadone Screen < 40, Barbiturate Screen < 60, Ur Phencyclidine Scrn < 6.00, Amphetamines Screen < 100, U Benzodiazepines Scrn < 85, Urine Cocaine Screen < 50, Urine Cannabis Screen 6.90, Urine Test NEGATIVE 12/26/2016 11:50:46 PM Patient signed out to me by Dr. Alexandra. Patient requesting detox. Currently intoxicated and belligerent to staff. We'll continue to monitor at this time. (DAR HENNESSY MD) Comments: 12/26/2016 11:35:00 PM patient signed out to Dr. Hennessy at shift change management coordinator. Patient has shown increasing sarcasm and belligerence. The patient refused to surrender her personal belongings and became agitated when they were being secured. She attempted to throw one of her books. Her personal belongings were secured and the patient offered something to help her sleep. She insists that she receive her book in her blankets but given her prior actions we cannot safely provide these to her. I will order trazodone to help her sleep through the evening and will reassess her on ongoing basis regarding any acute alcohol withdrawal. (RENE ALEXANDRA MD) Hand-Off Endorsed To: SURAJ VARELA MD Endorsed Time: 0700 Pending: consult (CASE MANAGEMENT HUSKY DETOX), other (SOBRIETY) (DAR HENNESSY MD) Departure Departure Condition: Stable Referrals: PATIENT HAS NO PRIMARY CARE DR (PCP/Family) Departure Forms: Customer Survey General Discharge Information (RENE ALEXANDRA MD) Departure Clinical Impression Primary Impression: Alcohol intoxication (DAR HENNESSY MD) Departure Disposition: HOME OR SELF CARE Additional Instructions: return for any concerns (SURAJ VARELA MD) Current Medications Sig/Jose Start time Last Medication Dose Stop Time Status Admin Ondansetron HCl 4 MG ONCE ONE 12/27 1614 UNVr (Zofran) 12/28 1615 Diphenhydramine HCl 25 MG ONCE ONE 12/26 2344 CAN (Benadryl) 12/26 2345 Haloperidol 5 MG ONCE ONE 12/26 2344 CAN (Haldol) 12/26 2345 Lorazepam 2 MG ONCE ONE 12/26 2344 CAN (Ativan) 12/26 2346 Laboratory Tests 12/27/16 1230: Urine Opiates Screen < 100.00, Methadone Screen < 40, Barbiturate Screen < 60, Ur Phencyclidine Scrn < 6.00, Amphetamines Screen < 100, U Benzodiazepines Scrn < 85, Urine Cocaine Screen < 50, Urine Cannabis Screen 6.90, Urine Test NEGATIVE 12/26/16 2239: Anion Gap 17 H, Estimated GFR > 60, BUN/Creatinine Ratio 20.0, Glucose 109 H, Calcium 8.9, Total Bilirubin 0.4, AST 53 H, ALT 54 H, Alkaline Phosphatase 56, Total Protein 6.9, Albumin 4.1, Globulin 2.8, Albumin/Globulin Ratio 1.5, CBC w Diff NO MAN DIFF REQ, RBC 4.34, MCV 93.1, MCH 30.9, RDW 13.6, MPV 6.7 L, Gran % 49.3, Lymphocytes % 37.9, Monocytes % 8.8, Eosinophils % 3.2, Basophils % 0.8, Absolute Granulocytes 3.9, Absolute Lymphocytes 3.0, Absolute Monocytes 0.7 H, Absolute Eosinophils 0.3, Absolute Basophils 0.1, PUBS MCHC 33.2, Serum Alcohol 411.0 12/26/2016 11:50:46 PM Patient signed out to me by Dr. Alexandra. Patient requesting detox. Currently intoxicated and belligerent to staff. We'll continue to monitor at this time. (NERIS MAHONEY,DAR) Comments: 12/26/2016 11:35:00 PM patient signed out to Dr. Hennessy at shift change management coordinator. Patient has shown increasing sarcasm and belligerence. The patient refused to surrender her personal belongings and became agitated when they were being secured. She attempted to throw one of her books. Her personal belongings were secured and the patient offered something to help her sleep. She insists that she receive her book in her blankets but given her prior actions we cannot safely provide these to her. I will order trazodone to help her sleep through the evening and will reassess her on ongoing basis regarding any acute alcohol withdrawal. (ENZO MAHONEY,RENE Huggins) Hand-Off Endorsed To: NICHOLE MAHONEY,SURAJ Stevens. Endorsed Time: 0700 Pending: consult (CASE MANAGEMENT HUSKY DETOX), other (SOBRIETY) (DAR HENNESSY MD) Departure Departure Condition: Stable Referrals: PATIENT HAS NO PRIMARY CARE DR (PCP/Family) Departure Forms: Customer Survey General Discharge Information (ENZO MAHONEY,RENE Huggins) Departure Clinical Impression Primary Impression: Alcohol intoxication (NERIS MAHONEY,DAR) Departure Disposition: HOME OR SELF CARE Additional Instructions: return for any concerns (NICHOLE MAHONEY,SURAJ Hu)
[2016-12-27 18:04] VITALS: BP 117/71
== END 2016-12-27 18:05 ==
LOC: ERH 21:42
PROVIDERS: Emergency Medicine
DX: F10.129 Alcohol abuse with intoxication, unspecified (principal)
CPT/HCPCS: 80307; 81025; G0480; J3101

== ENCOUNTER 2018-02-27 19:00 | Observation (INO) | payer OTHER ==
--- NOTE | 2018-02-27 20:02 | ED PSYCHIATRIC COMPLAINT ---
History of Present Illness General Chief Complaint: ETOH/Drug Related Complaint Stated Complaint: REQ ETOH DETOX Source: patient, family, old records Exam Limitations: intoxication Vital Signs & Intake/Output Vital Signs & Intake/Output Vital Signs Date Time Temp Pulse Resp B/P B/P Pulse O2 O2 Flow FiO2 Mean Ox Delivery Rate 02/28 0800 98.7 98 18 105/62 /08 0800 98.7 98 18 105/62 97 /08 0625 97.2 82 18 127/60 /08 0622 97.2 82 18 127/60 97 /08 0604 107/68 06/08 0320 98.1 88 20 107/68 06/08 0242 98.1 88 20 107/68 99 Room Air / 2138 115 123/68 02/27 2119 99.4 115 18 123/68 / 2119 99.4 115 20 123/68 96 /07 2056 Room Air / 1927 98.8 120 24 155/88 98 ED Intake and Output 02/28 0000 02/27 1200 Intake Total 0 Output Total 0 Balance 0 Intake, Oral 0 Output, Urine 0 Patient 140 lb Weight Allergies Coded Allergies: NO KNOWN ALLERGIES (02/10/14) Reconcile Medications Folic Acid 1 MG TABLET 1 MG PO DAILY nutritional supplements Gabapentin 100 MG CAPSULE 100 MG PO Q8P PRN ANXIETY please take this medication every 8 hours if you feel anxious. Lorazepam (Ativan) 0.5 MG TABLET 0.5 MG PO Q12 alcohol detox please take this medication at 10 PM tonight and the next and final dose will be 10 AM tomorrow Multivitamin (One Daily Multivitamin) 1 EACH TABLET 1 TAB PO DAILY nutritional supplements Thiamine HCl (Vitamin B-1) 100 MG TABLET 100 MG PO DAILY nutritional supplements Triage Note: PER PT "WANT DETOX" SPEECH VERY THICK , GAIT EXTREMELY UNSTEADY INITIALLY REPORTS LAST DRINK YESTERDAY BUT THEN RECANTS AND STATES 2 PINTS TODAY. REPORTS HX OF ETOH SEIZURE. Triage Nurses Notes Reviewed? yes Onset: Just prior to arrival Duration: week(s):, constant, continues in ED Timing: recent history Severity: severe Associated Symptoms: impaired concentration, insomnia LMP (ages 10-50): unknown : No Patient currently breastfeeds: No HPI: The patient has had long-standing issues with alcohol dependence and nightly is been drinking so much she's not left the house with difficulty sleeping eating. 2 years prior to admission she had alcohol withdrawal seizure. Her last detox was one year ago. She denies fever chills nausea vomiting diarrhea abdominal pain chest pain shortness breath headache dysuria rash bleeding suicidal ideation homicidal ideation hallucination. Her last drink was prior to admission. (Waldo Vang MD) Past History Travel History Traveled to [place] past 21 day No Medical History Any Pertinent Medical History? see below for history Neurological: NONE EENT: NONE Cardiovascular: NONE Respiratory: NONE Gastrointestinal: NONE Hepatic: NONE Renal: NONE Musculoskeletal: NONE Psychiatric: alcohol dependence, depression, R/O bipolar R/O bulemia Endocrine: NONE Blood Disorders: NONE Cancer(s): NONE History of MRSA: No History of VRE: No History of CDIFF: No Surgical History Surgical History: none Psychosocial History Who do you live with Family What is your primary language [place] Tobacco Use: Never used Family History Hx Contributory? No (Waldo Vang MD) Review of Systems Review of Systems Constitutional: Reports: no symptoms. EENTM: Reports: no symptoms. Respiratory: Reports: no symptoms. Cardiovascular: Reports: no symptoms. GI: Reports: no symptoms. Genitourinary: Reports: no symptoms. Musculoskeletal: Reports: no symptoms. Skin: Reports: no symptoms. Neurological/Psychological: Reports: see HPI, cognitive dysfunction, emotional problems. Hematologic/Endocrine: Reports: no symptoms. Immunologic/Allergic: Reports: no symptoms. All Other Systems: Reviewed and Negative (Waldo Vang MD) Physical Exam Physical Exam General Appearance: well developed/nourished, alert, awake, anxious, mild distress, intoxicated Head: atraumatic, normal appearance Eyes: Bilateral: normal appearance, PERRL, EOMI. Ears, Nose, Throat: normal pharynx, normal ENT inspection, hearing grossly normal Neck: normal inspection, supple, full range of motion, no midline tenderness Respiratory: normal breath sounds, chest non-tender, no respiratory distress, quiet respiration, lungs clear Cardiovascular: regular rate/rhythm, normal peripheral pulses, norml femoral pulses equa Gastrointestinal: normal bowel sounds, soft, non-tender, no organomegaly Extremities: normal range of motion, no ligament instability Neurological/Psychiatric: no motor/sensory deficits, awake, alert, anxious, life insurance specialist II-XII nml as tested Appearance/Memory/Insight: disheveled, impaired insight Behavoir/Eye Contact/Speech: cooperative, decreased rate of speech Thoughts/Hallucinations: no apparent hallucination Skin: intact, normal color, warm/dry SAD PERSONS Done? patient not suicidal CAGE (2/more=possible [place] CAGE (2/more=possible [place] Response Value Cut Down? yes 1 Annoyed? yes 1 Guilty? 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 1 Total 4 (Taj MAHONEY,Waldo) Progress Differential Diagnosis: drug intoxication, drug overdose, drug withdrawal, electrolyte abnormality, hypoglycemia Plan of Care: Orders Procedure Date/time Status Regular Diet 02/28 B Active Discharge Patient 02/28 0932 Active Patient Safety Monitor 02/28 0355 Active OXYGEN SETUP (GEN) 02/28 2355 Active Saline Lock 02/[address] in observation 02/28 2355 Active Patient Data 02/28 2355 Active Vital Signs 02/28 2355 Active Activity/Ambulation 02/28 2355 Active Code Status 02/28 2355 Active Patient Safety Monitor 02/27 2355 Active Intake & Output 02/28 2020 Active Patient Safety Monitor 02/28 2000 Active CIWA 02/28 2000 Active URINE 02/28 2000 Complete URINE DRUG SCREEN FOR ER ONLY 02/28 2000 Complete LIPASE 02/28 2000 Complete ETHANOL 02/28 2000 Complete COMPREHENSIVE METABOLIC PANEL 02/28 2000 Complete CBC WITHOUT DIFFERENTIAL 02/28 2000 Complete CASE MANAGEMENT CONSULT 02/28 2000 Active Current Medications Sig/Jose Start time Last Medication Dose Stop Time Status Admin Folic Acid 1 MG AT BEDTIME 02/28 2100 AC (Folic Acid) Multivitamins 1 TAB AT BEDTIME 02/28 2100 AC (Theragran Vitamins) Thiamine HCl 100 MG AT BEDTIME 02/28 2100 AC (Vitamin B1) Clonidine 0.1 MG Q8 02/28 2000 AC 02/28 (Catapres) 06 Gabapentin 300 MG Q8 02/28 2000 AC 02/28 (Neurontin) 06 Laboratory Tests 02/27/182047: Anion Gap 17 H, Estimated GFR > 60, BUN/Creatinine Ratio 16.0, Glucose 103 H, Calcium 9.4, Total Bilirubin 0.2, AST 23, ALT 23, Alkaline Phosphatase 55, Total Protein 6.6, Albumin 3.9, Globulin 2.7, Albumin/Globulin Ratio 1.4, Lipase 238, CBC w Diff NO MAN DIFF REQ, RBC 4.31, MCV 91.9, MCH 31.1 H, MCHC 33.8, RDW 14.2 , MPV 6.5 L, Gran % 59.0, Lymphocytes % 29.4, Monocytes % 7.4, Eosinophils % 2.9, Basophils % 1.3, Absolute Granulocytes 4.2, Absolute Lymphocytes 2.1, Absolute Monocytes 0.5, Absolute Eosinophils 0.2, Absolute Basophils 0.1, Serum Alcohol 487.0 02/27/187: Urine Opiates Screen < 100, Methadone Screen < 40, Barbiturate Screen < 60, Ur Phencyclidine Scrn < 6.00, Amphetamines Screen < 100, U Benzodiazepines Scrn < 85, Urine Cocaine Screen < 50, Urine Cannabis Screen < 5.00, Urine Test NEGATIVE 02/27/18 2002: Lipase Cancelled Hand-Off Endorsed To: Avtar Alexandra MD Endorsed Time: 0700 Pending: consult (case mgmt) (Waldo Vang MD) Departure Departure Condition: Stable Referrals: Patient Has No Primary Care Dr (PCP/Family) (Waldo Vang MD) Departure Disposition: HOME OR SELF CARE Clinical Impression Primary Impression: Alcohol dependence with intoxication Qualifiers: Complication of substance-induced condition: uncomplicated Qualified Code: F10.220 - Alcohol dependence with intoxication, uncomplicated Additional Instructions: Ativan as prescribed for withdrawal symptoms. Follow-up with a detox program as soon as possible. Notify your primary care physician of this emergency department visit and treatment plan and arrange for follow-up appointment for general medical evaluation as soon as possible If you do not currently have a primary care physician then please contact the [facility] primary care practice at the following phone number: . Return if any concerns or sudden worsening. Departure Forms: Customer Survey DETOX FACILITIES LIST General Discharge Information Prescriptions: Current Visit Scripts LORazepam (Ativan) 1 TAB PO TID PRN ALCHOHOL WITHDRAWAL #16 TAB DAY 1: 2 TAB 3X/DAY DAY 2: 1 TAB 4X/DAY DAY 3: 1 TAB 3X/DAY DAY 4: 1 TAB 2X/DAY DAY 5: 1 TAB (Avtar Alexandra MD) ED Attending Observation Initial Observation Note: I have seen and personally examined EFFIE LEONARD on 02/28/18 at 0001. I agree with the current emergency department documentation. The disposition (admission or discharge) is uncertain at this time, she needs a period of observation for the following reason(s): alcohol dependence and intoxication for detoxification The ED Nurse caring for this patient has been personally informed as to what the patient is being observed for. (Taj MAHONEY,Waldo) Initial Observation Note: I have seen and personally examined EFFIE LEONARD on 02/28/18 at 0932. I agree with the current emergency department documentation. The disposition (admission or discharge) is uncertain at this time, she needs a period of observation for the following reason(s): The ED Nurse caring for this patient has been personally informed as to what the patient is being observed for. Observation Re-Evaluation: I have reevaluated EFFIE LEONARD on 02/28/18 at 0932. The physical findings that support the continued need to observe this patient include . Observation Discharge: I have reevaluated EFFIE LEONARD on 02/28/18 at 0932. The patient is: (X): Stable for discharge (): To be admitted to Nursing Floor (): To be placed in Observation on Nursing Floor (): For transfer to other facility The patient was being observed for serious/life-threatening acute alcohol withdrawal. As a result of that observation, I have determined the patient is stable for outpatient management. (Nasrin MAHONEY,Avtar Ryan)
[2018-02-27 21:00] LABS: ABSOLUTE BASOPHIL COUNT 0.1 /CUMM (0.0-0.2); ABSOLUTE EOSINOPHIL COUNT 0.2 /CUMM (0.0-0.7); ABSOLUTE GRANULOCYTE CT 4.2 /CUMM (1.4-6.5); ABSOLUTE LYMPH COUNT 2.1 /CUMM (1.2-3.4); ABSOLUTE MONOCYTE COUNT 0.5 /CUMM (0.10-0.60); BASOPHIL % 1.3 % (0.0-2.0); EOSINOPHIL % 2.9 % (0-5); HEMATOCRIT 39.6 % (37-47); MEAN CORPUSCULAR HGB 31.1 PG (27.0-31.0); MEAN CORPUSCULAR HGB CONC 33.8 G/DL (33.0-37.0); MEAN CORPUSCULAR VOLUME 91.9 FL (81.0-99.0); MEAN PLATELET VOLUME 6.5 FL (7.4-10.4); PLATELET COUNT 324 /CUMM (130-400); RBC DISTRIBUTION WIDTH 14.2 % (11.5-14.5); RED BLOOD CELL CT 4.31 /CUMM (4.20-5.40); WHITE BLOOD CELL COUNT 7.2 /CUMM (4.8-10.8)
[2018-02-27 21:19] VITALS: BP 123/68
[2018-02-28 03:20] VITALS: BP 107/68
[2018-02-28 06:25] VITALS: BP 127/60
[2018-02-28 08:00] VITALS: BP 105/62
[2018-02-28 09:30] VITALS: BP 110/62
[2018-02-28] MEDS ORDERED: ATIVAN1 M1 PO (09:37)
== END 2018-02-28 10:03 ==
LOC: ERH 19:00 → ERHI 02-28 00:01
PROVIDERS: Emergency Medicine
DX: F10.229 Alcohol dependence with intoxication, unspecified (principal); F10.239 Alcohol dependence with withdrawal, unspecified; Y90.8 Blood alcohol level of 240 mg/100 ml or more
CPT/HCPCS: 6090; 80307; 81025; G0378; G0480; J3490